=== PATIENT | male | born 1980 | race Caucasian/White ===

== ENCOUNTER 2016-05-17 19:57 | Emergency (ER) | payer OTHER ==
[~2016-05-17] VITALS: Ht 175.2 cm; Wt 106.6 kg
[2016-05-17] MEDS ORDERED: TAMIFLU30 MG PO (20:26)
[2016-05-17] MEDS ORDERED: NAPROSYN500 MG PO (20:27)
[2016-05-17] MEDS ORDERED: ULTRAM50 MG PO (20:27)
[2016-05-17] MEDS ORDERED: Meclizine25 MG PO (20:27)
== END 2016-05-17 22:03 | disposition home or self-care (01) ==
LOC: ED 19:57
DX: J11.1 Influenza due to unidentified influenza virus with other respiratory manifestations (principal); Z79.899 Other long term (current) drug therapy

== ENCOUNTER → 2016-06-28 | Outpatient (CLI) | payer OTHER ==
[~2016-06-28] MED LIST: Meclizine25 MG PO; NAPROSYN500 MG PO; TAMIFLU30 MG PO; ULTRAM50 MG PO
== END | disposition home or self-care (01) ==
LOC: US 06-27 14:00
DX: R22.2 Localized swelling, mass and lump, trunk (principal)

== ENCOUNTER → 2016-07-06 | Outpatient (CLI) | payer OTHER | END | disposition home or self-care (01) | LOC: CT 10:00 | DX: M54.5 Low back pain (principal); R22.9 Localized swelling, mass and lump, unspecified ==

== ENCOUNTER → 2017-08-05 | Day surgery (SDC) | payer OTHER ==
[~2017-08-05] VITALS: Ht 175.2 cm; Wt 111.1 kg
[2017-08-05] VITALS (7 sets, daily range): BP systolic 103–120; BP diastolic 60–71
[~2017-08-05] MED LIST changes: +NORCO 5-325 TA1 EACH PO; +PENICILLIN VK500 MG PO; +VITAMIN D31000 UNIT PO
--- NOTE | ~2017-08-05 | O ---
[place], [place] OPERATIVE NOTE NAME: EBONY MALONEY UNIT #: [id number] ROOM: DOCTOR: ALMA NICHOLSON DMD BIRTHDATE: [birth year] DOS: PREOPERATIVE DIAGNOSES: Caries and anxiety. POSTOPERATIVE DIAGNOSES: Caries and anxiety. ANESTHESIA: General anesthesia with endotracheal intubation. FLUIDS: 1000 mL of Ringer's. COMPLICATIONS: None. CONDITION: To PACU, stable. ESTIMATED BLOOD LOSS: 150 mL. DESCRIPTION OF PROCEDURE: The patient was brought to the OR and placed in supine position. IV and EKG lines were placed. Endotracheal intubation and general anesthesia was administered. The patient was prepped and draped for oral procedures. Risks and benefits were explained to the patient prior to surgery. Clinical exam and x-rays taken determined nonrestorable maxillary and mandibular dentition. PROCEDURES PERFORMED: Complete extraction of teeth numbers 5, 6, 7, 8, 9, 10, 11, 12, 13 and 14, 20, 21, 22, 23, 24, 25, 27, 28, 29, 31. Full thickness flaps in all 4 quadrants with moderate alveoplasty. Sutured with 4-0 Vicryl. Maxillary temporary denture tried in. The patient left the OR in good condition and went to the PACU. ALMA NICHOLSON DMD CM:OPRECORD:OPERATIVE NOTE [id number] ALMA NICHOLSON DMD 08/15/17 0745 interface
== END | disposition home or self-care (01) ==
LOC: SDC 07-29 13:15
DX: K02.9 Dental caries, unspecified (principal); F41.9 Anxiety disorder, unspecified; M79.1 Myalgia; M17.0 Bilateral primary osteoarthritis of knee; Z98.890 Other specified postprocedural states

== ENCOUNTER 2017-10-17 16:02 | Emergency (ER) | payer OTHER ==
[~2017-10-17] VITALS: Ht 175.2 cm; Wt 108.9 kg
[2017-10-17] MEDS ORDERED: SILVADENE20 GM T (17:15)
[2017-10-17] MEDS ORDERED: Motrin,Rufen800 MG PO (17:19)
[2017-10-17] MEDS ORDERED: PERCOCET 5-3251 EACH PO (17:19)
== END 2017-10-17 17:27 | disposition home or self-care (01) ==
LOC: ED 16:02
DX: T22.60XA Corrosion of second degree of shoulder and upper limb, except wrist and hand, unspecified site, initial encounter (principal); T23.671A Corrosion of second degree of right wrist, initial encounter; Z79.899 Other long term (current) drug therapy; Y93.89 Activity, other specified; Y92.69 Other specified industrial and construction area as the place of occurrence of the external cause; Y99.8 Other external cause status

== ENCOUNTER → 2017-10-29 | Outpatient (CLI) | payer OTHER ==
[~2017-10-29] MED LIST changes: +Motrin,Rufen800 MG PO; +PERCOCET 5-3251 EACH PO; +SILVADENE20 GM T
== END | disposition home or self-care (01) ==
LOC: WOUNDCARE 10-24 10:54
DX: T22.231D Burn of second degree of right upper arm, subsequent encounter (principal); T22.211D Burn of second degree of right forearm, subsequent encounter; T31.0 Burns involving less than 10% of body surface; X08.8XXD Exposure to other specified smoke, fire and flames, subsequent encounter

== ENCOUNTER 2018-11-05 21:36 | Emergency (ER) | payer OTHER ==
[~2018-11-05] VITALS: Ht 175.2 cm; Wt 106.6 kg
== END 2018-11-05 23:23 | disposition home or self-care (01) ==
LOC: ED 21:36
DX: M54.5 Low back pain (principal); Z79.899 Other long term (current) drug therapy; X50.1XXA Overexertion from prolonged static or awkward postures, initial encounter; Y93.89 Activity, other specified; Y92.89 Other specified places as the place of occurrence of the external cause; Y99.9 Unspecified external cause status

== ENCOUNTER 2019-07-10 19:28 | Emergency (ER) | payer OTHER ==
[~2019-07-10] VITALS: Ht 175.2 cm; Wt 104.3 kg
[2019-07-10] MEDS ORDERED: Motrin,Rufen800 MG PO (20:37)
== END 2019-07-10 20:59 | disposition home or self-care (01) ==
LOC: ED 19:28
DX: S80.12XA Contusion of left lower leg, initial encounter (principal); X58.XXXA Exposure to other specified factors, initial encounter; Y93.89 Activity, other specified; Y92.89 Other specified places as the place of occurrence of the external cause; Y99.8 Other external cause status

== ENCOUNTER → 2022-11-08 | Outpatient (CLI) | payer OTHER | END | disposition home or self-care (01) | LOC: ORTHO 00:17 | PROVIDERS: ATTEND Orthopaedic Surgery | DX: G56.03 Carpal tunnel syndrome, bilateral upper limbs (principal) ==

== ENCOUNTER → 2023-02-13 | Day surgery (SDC) | payer OTHER ==
[2023-02-11 15:25] LABS: BUN 12 mg/dl (9-23); CHLORIDE 107 mmol/L (98-107); POTASSIUM 3.8 mmol/L (3.4-5.1)
[~2023-02-13] VITALS: Ht 175.2 cm; Wt 115.7 kg
[2023-02-13 06:50] VITALS: BP 121/76
[2023-02-13 08:05] VITALS: BP 137/85
[2023-02-13 08:20] VITALS: BP 135/89
== END | disposition home or self-care (01) ==
LOC: SDC 01-06 08:00
PROVIDERS: ATTEND Orthopaedic Surgery
DX: G56.03 Carpal tunnel syndrome, bilateral upper limbs (principal)